=== PATIENT | male | born 1985 | race Two or more races ===

== ENCOUNTER 2021-01-07 21:48 | Inpatient (IN) | payer SELFPAY ==
[~2021-01-07] VITALS: Ht 180.3 cm; Wt 72.6 kg
[2021-01-07] MEDS ORDERED: IV RINGERS SOLUTION,LACTATED 1,000 ML IV ONE (22:30)
--- NOTE | 2021-01-07 23:19 | RAD ---
INDICATION: Reason: DKA, chest pain / Spl. Instructions: / History: COMPARISON: None. FINDINGS: Single view of chest obtained. No focal airspace consolidation. Cardiomediastinal contour unremarkable. No acute osseous abnormality. IMPRESSION: * No focal airspace consolidation or edema. Electronically signed by: Nigel Coburn MD (01/07/2021 11:17 PM) [id number]
[2021-01-07 23:25] LABS: CLARITY,URINE CLEAR; COLOR,URINE YELLOW
[2021-01-07 23:26] LABS: BACTERIA,URINE 0 /HPF (0-FEW); BILIRUBIN,URINE NEG (NEG); GLUCOSE,URINE 500 mg/dL (NEG); NITRITE,URINE NEG (NEG); RBC,URINE 0 /HPF (0-2); SQUAMOUS EPITHELIAL CELL,UR OCC /LPF; UROBILINOGEN,URINE 0.2 mg/dL (0.2 mg/dL); WBC,URINE 0 /HPF (0-4)
[2021-01-08] VITALS (11 sets, daily range): BP systolic 124–159; BP diastolic 71–95
[2021-01-08 02:08] LABS: BASO # 0.1 x10^3/uL (0.0-0.2); BASO % 1 % (0-3); EOS % 0 % (0-3); HEMATOCRIT 45.2 % (39.0-53.0); HEMOGLOBIN 14.2 g/dL (13.0-17.5); LYMPH # 1.3 x10^3/uL (1.0-4.8); LYMPH % 8 % (24-48); MEAN CORPUSCULAR HEMOGLOBIN 26 pg (25-35); MEAN CORPUSCULAR HGB CONC 32 g/dL (31-37); MEAN CORPUSCULAR VOLUME 84 fL (79-100); MONO # 0.6 x10^3/uL (0.0-1.1); MONO % 4 % (0-9); NEUT # 15.4 x10^3uL (1.8-7.7); NEUT % 88 % (31-73); PLATELET COUNT 507 x10^3/uL (140-400); RED CELL DISTRIBUTION WIDTH 15.3 % (11.5-14.5); WHITE BLOOD COUNT 17.5 x10^3/uL (4.0-11.0)
[2021-01-08 02:26] LABS: % LYMPHS 8 % (24-48); % MONOS 2 % (0-10); % SEGS 90 % (35-66); PLT ESTIMATE INCREASED (ADEQUATE)
[2021-01-08 02:29] LABS: ALBUMIN 3.7 g/dL (3.4-5.0); ALBUMIN/GLOBULIN RATIO 0.8 (1.0-1.7); ALK PHOS 121 U/L (46-116); ALT (SGPT) 44 U/L (16-63); AST (SGOT) 16 U/L (15-37); BLOOD UREA NITROGEN 26 mg/dL (8-26); BUN/CREATININE RATIO 17 (6-20); CHLORIDE 96 mmol/L (98-107); CREATININE 1.5 mg/dL (0.7-1.3); GLUCOSE 497 mg/dL (70-99); MAGNESIUM 2.3 mg/dL (1.8-2.4); PHOSPHORUS 5.9 mg/dL (2.6-4.7); SODIUM 130 mmol/L (136-145); TOTAL BILIRUBIN 0.7 mg/dL (0.2-1.0); TOTAL PROTEIN 8.4 g/dL (6.4-8.2)
[2021-01-08] MEDS ORDERED: IV RINGERS SOLUTION,LACTATED 1,000 ML IV ONE ×3 (02:30→05:00)
[2021-01-08] MEDS ORDERED: ONDANSETRON PF 4 MG/2 ML VIAL. IVP ONE (02:30)
[2021-01-08 02:33] LABS: ANION GAP 29 (6-14); CARBON DIOXIDE < 5 mmol/L (21-32)
[2021-01-08] MEDS ORDERED: IV NORMAL SALINE 100ML 100 ML ONE (03:27)
[2021-01-08] MEDS ORDERED: INSULIN LISPRO 300 UNITS/3 ML VIAL. SQ ONE (04:00)
[2021-01-08] MEDS ORDERED: CALCIUM GLUCONATE 1,000 MG/10 ML VIAL IV ONE ×2 (04:00→05:00)
[2021-01-08] MEDS ORDERED: INSULIN REGULAR 100 UNIT/ML 3ML VIAL. SQ ONE (04:00)
[2021-01-08] MEDS: INSULIN REGULAR VIAL 100 UNIT in IV NORMAL SALINE 100ML 100 ML IV PRN ×3 (04:08→20:36)
--- NOTE | 2021-01-08 04:34 | EKG ---
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
--- NOTE | 2021-01-08 04:39 | PHYS DOC ---
Past History Past Medical History: Diabetes Past Surgical History: Other Alcohol Use: None Adult General Chief Complaint Chief Complaint: BLOOD SUGAR PROBLEM HPI HPI Patient is a 35-year-old male with a past medical history significant for type 1 diabetes who presents with a chief complaint of elevated blood sugars, fatigue and feelings of shortness of breath. States that he has been out of insulin for the last 3 days and has not had time to get a hold of his primary care provider to get anymore and has not contacted them. Denies any recent travel, illnesses, fevers, chest pain, abdominal pain, dysuria, hematuria or blood in the stool. Denies any alcohol or drug use. Denies any known ill contacts, Covid/flu/cold symptoms. Does endorse some nausea but no vomiting. Review of Systems Review of Systems Review of systems otherwise unremarkable except noted in HPI Current Medications Current Medications Current Medications Medications (Trade) Dose Ordered Sig/Rachel Start Time Stop Time Status Last Admin Dose Admin Calcium Gluconate (Calcium Gluconate) 1,000 mg 1X ONCE 01/08/21 04:00 01/08/21 04:01 DC 01/08/21 03:36 1,000 MG Fentanyl Citrate (Fentanyl 2ml Vial) 50 mcg 1X ONCE 01/08/21 02:30 01/08/21 02:31 DC 01/08/21 02:17 50 MCG Insulin Human Lispro (HumaLOG) 15 units 1X ONCE 01/08/21 04:00 01/08/21 04:01 DC Insulin Human Regular (HumuLIN R VIAL) 15 unit 1X ONCE 01/08/21 04:00 01/08/21 04:01 DC 01/08/21 03:44 15 UNIT Insulin Human Regular 100 unit/ Sodium Chloride 101 ml @ 0 mls/hr CONT PRN PRN 01/08/21 02:45 01/08/21 04:08 7.7 MLS/HR Lactated Ringer's 1,000 ml @ 1,000 mls/hr 1X ONCE 01/08/21 02:30 01/08/21 03:29 DC 01/08/21 02:20 1,000 MLS/HR Ondansetron HCl (Zofran) 4 mg 1X ONCE 01/08/21 02:30 01/08/21 02:31 DC 01/08/21 02:00 4 MG Sodium Chloride 100 ml @ As Directed STK-MED ONCE 01/08/21 03:27 5/6/21 03:27 DC Allergies Allergies Allergies Coded Allergies Type Severity Reaction Last Updated Verified No Known Drug Allergies 01/07/21 No Physical Exam Physical Exam Constitutional: Well developed, well nourished, appears ill but cooperative HENT: Normocephalic, atraumatic, bilateral external ears normal, oropharynx dry, nose normal. [] Eyes: conjunctiva normal, no discharge. [] Neck: Normal range of motion, Cardiovascular: Sinus tachycardia Lungs & Thorax: Bilateral breath sounds clear with tachypnea and normal oxygen saturation on room air Abdomen: Bowel sounds normal, soft, no tenderness, no masses, no pulsatile masses. [] Skin: Warm, dry, no erythema, no rash. [] Back: no CVA tenderness. [] Extremities: No tenderness, no cyanosis, no clubbing, ROM intact, no edema. [] Neurologic: Alert and oriented X 3, no focal deficits noted. [] Psychologic: Affect normal, judgement normal, mood normal. [] Current Patient Data Vital Signs Vital Signs Date Time Temp Pulse Resp B/P (MAP) Pulse Ox O2 Delivery O2 Flow Rate FiO2 01/08/21 02:17 28 98 01/08/21 02:14 90 159/95 (116) Room Air 01/07/21 22:05 98.2 Lab Results Laboratory Tests Test 01/07/21 22:03 01/07/21 22:36 01/08/21 01:45 01/08/21 02:20 Glucose (Fingerstick) 423 mg/dL (70-99) H Urine Collection Type Unknown Urine Color Yellow Urine Clarity Clear Urine pH 5.0 Urine Specific [place] >=1.030 Urine Protein 30 mg/dl (NEG-TRACE) Urine Glucose (UA) 500 mg/dL (NEG) Urine Ketones (Stick) >=160 mg/dL (NEG) Urine Blood Small (NEG) Urine Nitrite Neg (NEG) Urine Bilirubin Neg (NEG) Urine Urobilinogen Dipstick 0.2 mg/dL (0.2 mg/dL) Urine Leukocyte Esterase Neg (NEG) Urine RBC 0 /HPF (0-2) Urine WBC 0 /HPF (0-4) Urine Squamous Epithelial Cells Occ /LPF Urine Bacteria 0 /HPF (0-FEW) White Blood Count 17.5 x10^3/uL (4.0-11.0) H Red Blood Count 5.40 x10^6/uL (4.30-5.70) Hemoglobin 14.2 g/dL (13.0-17.5) Hematocrit 45.2 % (39.0-53.0) Mean Corpuscular Volume 84 fL (79-100) Mean Corpuscular Hemoglobin 26 pg (25-35) Mean Corpuscular Hemoglobin Concent 32 g/dL (31-37) Red Cell Distribution Width 15.3 % (11.5-14.5) H Platelet Count 507 x10^3/uL (140-400) H Neutrophils (%) (Auto) 88 % (31-73) H Lymphocytes (%) (Auto) 8 % (24-48) L Monocytes (%) (Auto) 4 % (0-9) Eosinophils (%) (Auto) 0 % (0-3) Basophils (%) (Auto) 1 % (0-3) Neutrophils # (Auto) 15.4 x10^3uL (1.8-7.7) H Lymphocytes # (Auto) 1.3 x10^3/uL (1.0-4.8) Monocytes # (Auto) 0.6 x10^3/uL (0.0-1.1) Eosinophils # (Auto) 0.0 x10^3/uL (0.0-0.7) Basophils # (Auto) 0.1 x10^3/uL (0.0-0.2) Segmented Neutrophils % 90 % (35-66) H Lymphocytes % 8 % (24-48) L Monocytes % 2 % (0-10) Platelet Estimate Increased (ADEQUATE) Sodium Level 130 mmol/L (136-145) L Potassium Level 6.8 mmol/L (3.5-5.1) *H Chloride Level 96 mmol/L (98-107) L Carbon Dioxide Level < 5 mmol/L (21-32) *L Anion Gap 29 (6-14) H Blood Urea Nitrogen 26 mg/dL (8-26) Creatinine 1.5 mg/dL (0.7-1.3) H Estimated GFR (Cockcroft-Gault) 53.0 BUN/Creatinine Ratio 17 (6-20) Glucose Level 497 mg/dL (70-99) H Calcium Level 9.0 mg/dL (8.5-10.1) Phosphorus Level 5.9 mg/dL (2.6-4.7) H Magnesium Level 2.3 mg/dL (1.8-2.4) Total Bilirubin 0.7 mg/dL (0.2-1.0) Aspartate Amino Transferase (AST) 16 U/L (15-37) Alanine Aminotransferase (ALT) 44 U/L (16-63) Alkaline Phosphatase 121 U/L (46-116) H Total Protein 8.4 g/dL (6.4-8.2) H Albumin 3.7 g/dL (3.4-5.0) Albumin/Globulin Ratio 0.8 (1.0-1.7) L POC Venous pH 7.01 (7.32-7.42) L POC Venous pCO2 8 mmHg (41-51) L POC Venous pO2 111 mmHg (20-40) H Venous Blood HCO3 3 mmol/L (24-28) L POC Venous O2 Saturation (Laurie) 96 % POC FiO2 21 Test 01/08/21 03:25 Glucose (Fingerstick) 445 mg/dL (70-99) H EKG EKG Initial EKG with a rate of 92, QRS 102, QTc of 455, sinus rhythm. Abnormal peaked T waves Repeat EKG with a rate of 88, QRS of 94, QTc 441, improved T waves, no STEMI Radiology/Procedures Radiology/Procedures [] INDICATION: Reason: DKA, chest pain / Spl. Instructions: / History: COMPARISON: None. FINDINGS: Single view of chest obtained. No focal airspace consolidation. Cardiomediastinal contour unremarkable. No acute osseous abnormality. IMPRESSION: * No focal airspace consolidation or edema. Electronically signed by: Nigel Coburn MD (01/07/2021 11:17 PM) [id number] Heart Score C/O Chest Pain: No Risk Factors: Risk Factors: DM, Current or recent (<one month) smoker, HTN, HLP, family history of CAD, obesity. Risk Scores: Risk Factors: DM, Current or recent (<one month) smoker, HTN, HLP, family history of CAD, obesity. Course & Med Decision Making Course & Med Decision Making Patient is a 35-year-old male who presents with elevated blood sugars and tachypnea suggestive of diabetic ketoacidosis. Initial blood sugar 445. Vital signs notable for sinus tachycardia and tachypnea. Physical exam noted above. EKG noted above with a rate of 92 and peaked T waves. Patient placed on the monitor with IV access established. Started on IV fluid resuscitation immediately with lactated Ringer's. Patient initially with only 1 IV access as patient is a hard stick. After 3 nursing attempts and one physician attempted a easy IJ was placed, with an 18-gauge Angiocath. Patient got up to urinate, and pulled the easy IJ line out of his neck and broke the catheter. A replacement was found and right forearm. During the time that IV access was an issue, patient was given home dose of subcu Humulin and 15 and given dose of calcium gluconate due to concern for peaked T waves on EKG. After both IVs established, patient started on IV insulin drip, and had 3 L of lactated Ringer's. Laboratory analysis notable for neutrophilic leukocytosis, ketonuria, hyperkalemia to 6.8, pseudohyponatremia to 130, blood gas with a pH of 7.09, bicarb of 2.5, base deficit -27, lactate at 2.84. Given these findings patient in diabetic ketoacidosis and continued on treatment. Last glucose of 405, repeat potassium of 5.6. Continue patient on IV insulin drip, IV fluid resuscitation. Discussed all findings with patient and recommended admission to the hospital for continued evaluation and treatment of his DKA, hyperkalemia and MIKY. Patient verbalized understanding and agreed with plan of admission. Discussed patient with Dr. Moore, who agreed with diagnosis and need for admission and accepted patient. Dragon Disclaimer Dragon Disclaimer This electronic medical record was generated, in whole or in part, using a voice recognition dictation system. Departure Departure: Impression: Primary Impression: DKA, type 1 Additional Impressions: Hyperkalemia MIKY (acute kidney injury) Disposition: ADMITTED INPATIENT Admitting Physician: Arabella Moore Condition: IMPROVED Referrals: NON,STAFF (PCP) Problem Qualifiers CARTER MEJIA MD January 08, 2021 04:39
[2021-01-08 05:41] LABS: BLOOD UREA NITROGEN 25 mg/dL (8-26); CALCIUM 9.1 mg/dL (8.5-10.1); CHLORIDE 98 mmol/L (98-107); CREATININE 1.3 mg/dL (0.7-1.3); GFR 62.5; GLUCOSE 434 mg/dL (70-99); POTASSIUM 5.6 mmol/L (3.5-5.1); SODIUM 134 mmol/L (136-145)
[2021-01-08 05:50] LABS: ANION GAP 31 (6-14)
[2021-01-08 05:52] LABS: CARBON DIOXIDE < 5 mmol/L (21-32)
[2021-01-08 06:45] LABS: BGAS PH 7.05 (7.35-7.46)
--- NOTE | 2021-01-08 07:17 | EKG ---
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
[2021-01-08] MEDS ORDERED: INSULIN REGULAR VIAL 100 UNIT in IV NORMAL SALINE 100ML 100 ML IV PRN (08:15)
[2021-01-08] MEDS ORDERED: IV NORMAL SALINE 1,000ML 1,000 ML IV SCH (08:15)
[2021-01-08 08:58] LABS: CALCIUM 8.7 mg/dL (8.5-10.1); CREATININE 1.3 mg/dL (0.7-1.3); GFR 62.5; MAGNESIUM 2.3 mg/dL (1.8-2.4); PHOSPHORUS 4.3 mg/dL (2.6-4.7)
[2021-01-08] MEDS ORDERED: INSU100C SQ (09:18)
[2021-01-08] MEDS ORDERED: LISI10TA16 PO (09:18)
[2021-01-08] MEDS ORDERED: NPH,100V SQ (09:18)
[2021-01-08] MEDS ORDERED: ESCITALOPRAM OX20 MG PO (09:18)
[2021-01-08] MEDS: IV DEXTROSE 5% - 0.9 % NACL 1,000 ML IV SCH ×2 (10:15→23:45)
[2021-01-08 12:33] LABS: CALCIUM 7.9 mg/dL (8.5-10.1); CREATININE 1.2 mg/dL (0.7-1.3); GFR 68.5; MAGNESIUM 1.9 mg/dL (1.8-2.4); PHOSPHORUS 2.5 mg/dL (2.6-4.7); POTASSIUM 4.8 mmol/L (3.5-5.1)
[2021-01-08] MEDS: IV NORMAL SALINE 1,000ML 1,000 ML IV SCH ×2 (16:00→20:36)
--- NOTE | 2021-01-08 16:02 | HP ---
ADMIT DATE: 01/08/2021 HISTORY OF PRESENT ILLNESS: The patient is a 35-year-old male patient, who is known to have type 1 diabetes since he was 11 years old, who presented to the Emergency Room of [facility] with a complaint of markedly elevated blood sugar, fatigue and feeling of shortness of air. He stated that he has been out of his insulin for the past 3 days, has not had time to get hold of his primary care provider to get anymore and that he has not contacted him. He denied any recent travel illness, fever, chest pain, abdominal pain, dysuria, hematuria or blood in the stool. Denied any alcohol or drug use. Denies any known ill contact. He denied any COVID, flu or cold symptoms. Does endorse some nausea, but no vomiting. He was extensively investigated in the Emergency Room and his lab work showed that his white cell count was high at 17,500. His blood sugar on admission was 423. He has hyperkalemia and dilutional hyponatremia and severe acidosis. His pH was 7.05, pCO2 of 11 and bicarb of only 3. the patient was admitted with severe diabetic ketoacidosis and was started on IV fluids and insulin drip as per DKA protocol. The patient continued to complain of generalized weakness and tiredness. PAST MEDICAL HISTORY: Significant for hypertension and type 1 diabetes. PAST SURGICAL HISTORY: Significant for skin graft to his left forearm. ALLERGIES: He has no known drug allergies. MEDICATIONS: He is currently on following medication. He is normally on lisinopril 10 mg once a day, escitalopram oxalate 20 mg once a day. He is on insulin lispro 15 units before meals and Humulin N 30 units at bedtime. FAMILY HISTORY: He is only child. His both parents are still alive, but is not aware of their age or if there any medical problems they have. SOCIAL HISTORY: He is single. Does not smoke, drink alcohol or use recreational drugs. He is currently unemployed. PHYSICAL EXAMINATION: GENERAL: On arrival to the Emergency Room, there was no pallor, jaundice, cyanosis or thyromegaly. No jugular venous distention. No limb edema. VITAL SIGNS: His heart rate was 112, blood pressure was 145/87, temperature was 98.2, respiratory rate was 16 and oxygen saturation was 100% on room air. HEAD, EYES, EARS, NOSE AND THROAT: Normocephalic, atraumatic. NECK: Supple. HEART: Normal first and second heart sounds. No gallop, rub or murmur. CHEST: Clear to auscultation, no crepitation or rhonchi. ABDOMEN: Distended, but soft, nontender. NEUROLOGIC: He is somewhat sleepy, but arousable. All cranial nerves intact. He moves extremities without difficulty. He ambulates without assistance or assistive devices. LABORATORY DATA: This morning showed a white cell count 17,500, hemoglobin 14, hematocrit 45, MCV 84 and platelet count 507,000 with normal manual differential. His initial lab work on arrival showed a serum sodium 130, potassium 6.8, chloride 96, bicarbonate 5 and anion gap of 29, BUN 26, creatinine 1.5. Estimated GFR was 53 mL per minute. His glucose was 497. His calcium was 9, phosphorus 5.9, magnesium was 2.3. Total bilirubin, AST, ALT were normal. Alkaline phosphatase slightly elevated. Total protein was 8.4, albumin was 3.7. His urinalysis showed the urine was yellow, clear with a pH of 5, specific gravity of 1.030. There was a small amount of protein, large amount of glucose, large amount of ketones, small amount of blood. The urine was negative for nitrite, bilirubin and leukocyte esterase. There are no rbc's, no wbc's and no bacteria. His chest x-ray showed no focal airspace consolidation and his cardiomediastinal contour was unremarkable. Unfortunately, no toxic screen was done. ASSESSMENT AND PLAN: In summary, this is a 35-year-old male patient with diabetic ketoacidosis, type 1 diabetes mellitus and hypertension. Plan is to continue with IV fluid and insulin drip as per DKA protocol. PAMELA DR: Hannah TID: [id number]
[2021-01-08 17:25] LABS: CALCIUM 8.1 mg/dL (8.5-10.1); CREATININE 1.3 mg/dL (0.7-1.3); GFR 62.5; MAGNESIUM 1.8 mg/dL (1.8-2.4); PHOSPHORUS 1.6 mg/dL (2.6-4.7); POTASSIUM 3.7 mmol/L (3.5-5.1)
[2021-01-09] VITALS (12 sets, daily range): BP systolic 128–144; BP diastolic 72–88
[2021-01-09] MEDS: IV NORMAL SALINE 1,000ML 1,000 ML IV SCH ×4 (03:45→11:58)
[2021-01-09] MEDS: IV DEXTROSE 5% - 0.9 % NACL 1,000 ML IV SCH ×3 (03:45→11:45)
[2021-01-09] MEDS ORDERED: LORazepam 0.5 MG TABLET PO ONE (12:30)
--- NOTE | 2021-01-09 18:02 | DS ---
DATE OF DISCHARGE: 01/09/2021 HOSPITAL COURSE: The patient is a 35-year-old male patient was known to have type 1 diabetes, was admitted with complaint of markedly elevated blood sugar, shortness of breath, nausea and vomiting. He was diagnosed with diabetic ketoacidosis and was started on IV fluid and insulin drip as per protocol and he basically did well. His blood sugar is now well controlled, although we ____ his anion gap has closed and most recent lab work that was available and allowed us to do was 16 yesterday. He adamantly refused to allow us to check his lab work. However, he is awake, alert, has no further episodes of nausea or vomiting. His blood sugar is well controlled. His kidney function has improved from 1.5 to 1.3. PHYSICAL EXAMINATION: GENERAL: When I examined him this afternoon, he looked well and was clearly in no apparent respiratory distress. He was somewhat pale, but no jaundice, cyanosis or thyromegaly. No jugular distention. No limb edema. VITAL SIGNS: Heart rate was 58, blood pressure is 143/83, temperature 98.2, respiratory rate was 18 and oxygen saturation was 98% on room air. The rest clinical exam stable. LABORATORY DATA: Showed a white cell count 17,500, hemoglobin 14, hematocrit 45, MCV 84 and platelet count 507,000. His most recent chemistry showed a serum sodium 137, potassium 3.7, chloride 105, bicarbonate 16, anion gap of 16, BUN 19, creatinine 1.3. Estimated GFR was 62 mL per minute. His glucose was 193, calcium was 8.1, magnesium was 1.6. DISCHARGE MEDICATIONS: He was discharged home to continue on escitalopram oxalate 20 mg once a day, Humalog insulin 15 units before meals and lisinopril 10 mg daily as well as NPH ____ Humulin N 30 units subcutaneously at bedtime. FINAL DISCHARGE DIAGNOSES: 1. Diabetic ketoacidosis, resolved. 2. Acute kidney injury, resolved. 3. Hyperkalemia, resolved. 4. Other medical problems include hypertension and type 1 diabetes mellitus. LAURA/GARRICK DR: Hannah TID: [id number]
[2021-01-12 08:44] LABS: POTASSIUM 6.8 mmol/L (3.5-5.1)
== END 2021-01-09 13:10 | disposition home or self-care (01) | DRG 638 ==
LOC: ER 21:48 → ICU 01-08 05:52
PROVIDERS: ADMIT Internal Medicine; ATTEND Internal Medicine
DX: E10.10 Type 1 diabetes mellitus with ketoacidosis without coma (principal); N17.9 Acute kidney failure, unspecified; E87.1 Hypo-osmolality and hyponatremia; E87.5 Hyperkalemia; I10 Essential (primary) hypertension; Z56.0 Unemployment, unspecified; Z79.4 Long term (current) use of insulin
CPT/HCPCS: 36415; 71045; 80048; 80053; 81001; 82803; 82947; 83735; 84100; 85007; 85025; 93005; 96361; 96372; 96374; 96375; 96376; J0610; J1815; J2405; J3010; J7042; J7120; 99285-25; J7030